=== PATIENT | female | born 1990 | race Caucasian/White ===

== ENCOUNTER 2017-02-26 09:11 | Emergency (ER) | payer OTHER ==
[~2017-02-26] VITALS: Ht 144.8 cm; Wt 56.7 kg
[~2017-02-26 09:11] MED LIST: NO MEDICATIONS; PHENERGAN PO
== END 2017-02-26 12:11 | disposition left against medical advice (07) ==
LOC: CED 09:11
DX: L02.413 Cutaneous abscess of right upper limb (principal)
CPT/HCPCS: 99283